=== PATIENT | female | born 1985 | race Caucasian/White ===

== ENCOUNTER 2020-10-28 05:01 | Inpatient (IN) | payer OTHER, SELFPAY ==
[2020-10-28] VITALS (67 sets, daily range): BP systolic 88–156; BP diastolic 38–99; PULSE 64–112; RESP 18; TEMP 36.5–37.3; O2SAT 93–100; BMI 33.0
--- NOTE | 2020-10-28 05:02 | LDADM ---
This patient, Allison Evans, was admitted to Labor/Delivery/Recovery 104 on 10/28/20 at 05:01. Plans for labor, pain management and were discussed with patient. Patient/family oriented to hospital policies and general routines including ID bracelet, bed and alarms, visiting hours, pain management, procedures, bathroom and other care routines, personal items, smoking policy, room service/diet and guest tray routines, security routines, and visiting hours. Patient/Family are encouraged to report perceived risks to care and to ask questions if they do not understand what they are told or what they should do. See OBIX for further documentation.
[2020-10-28 05:46] LABS: Basophils Absolute Auto 0.1 K/mm3 (0.0-0.1); Basophils Percent Auto 0.4 % (0.2-1.2); Eosinophils Absolute Auto 0.2 K/mm3 (0-0.3); Eosinophils Percent Auto 1.3 % (0-4.4); Hematocrit 36.9 % (37.0-47.0); Hemoglobin 12.4 g/dL (12.0-15.0); Immature Granulocyte Absolute 0.11 K/mm3 (0.00-0.031); Immature Granulocyte Percent A 0.8 % (0-0.5); Lymphocytes Percent Auto 22.8 % (18.3-44.2); Mean Corpuscular HGB Conc 33.6 g/dl (32-36); Mean Corpuscular Hemoglobin 28.8 pg (26-34); Mean Corpuscular Volume 85.6 fl (80-100); Mean Platelet Volume 9.9 fl (7.4-10.4); Monocytes Percent Auto 6.8 % (2.6-8.5); Neutrophils Absolute Auto 9.5 K/mm3 (1.3-6.7); Neutrophils Percent Auto 67.9 % (45.5-73.1); Platelet Count Result 383 k/mm3 (150-375); Red Blood Count 4.31 M/mm3 (4.2-5.4); Red Cell Distribution Width 14.2 % (11.5-14.5)
[2020-10-28] MEDS: LACTATED RINGERS 1,000 ML 125 ML IV CONT ×3 (05:49→11:36)
[2020-10-28] MEDS: OXYTOCIN 30 UNITS/NS 500 ML 30 UNITS/500 ML BAG IV CONT (05:49)
--- NOTE | 2020-10-28 07:14 | WPDANESEPP ---
Anes - Eval Pre Procedure Procedure: labor epidural Date/Time: 10/28/20 07:14 Surgeon: whitney Pre Op Diagnosis: Ind Patient Data Age: 34 Gender: F Height: 1.65 m Weight: 90 kg Last Vital Signs Temp 37.3 C 10/28/20 05:30 Pulse 92 10/28/20 07:00 Resp 18 10/28/20 05:30 BP 144/88 H 10/28/20 07:00 Allergies Allergy/AdvReac Type Severity Reaction Status Date / Time fluconazole Allergy Intermediate ITCHY HIVES Verified 07/03/18 20:34 Home Medications Medication Instructions Recorded Confirmed Type PNV cmb#95-ferrous fumarate-FA 1 tablet PO DAILY 10/04/20 10/04/20 History [] ferrous sulfate [Iron (ferrous 325 mg PO DAILY 10/04/20 10/04/20 History sulfate)] Laboratory Tests 10/28/20 10/28/20 10/28/20 05:26 05:26 05:26 WBC 14.0 K/mm3 H K/mm3 (4.5-10.0) RBC 4.31 M/mm3 M/mm3 (4.2-5.4) Hgb 12.4 g/dL g/dL (12.0-15.0) Hct 36.9 % L % (37.0-47.0) MCV 85.6 fl fl (80-100) MCH 28.8 pg pg (26-34) MCHC 33.6 g/dl g/dl (32-36) RDW 14.2 % % (11.5-14.5) Plt Count 383 k/mm3 H k/mm3 (150-375) MPV 9.9 fl fl (7.4-10.4) Immature Gran % (Auto) 0.8 % H % (0-0.5) Neut % (Auto) 67.9 % % (45.5-73.1) Lymph % (Auto) 22.8 % % (18.3-44.2) Carter % (Auto) 6.8 % % (2.6-8.5) Eos % (Auto) 1.3 % % (0-4.4) Baso % (Auto) 0.4 % % (0.2-1.2) Lymph # (Auto) 3.20 K/mm3 K/mm3 (0.9-3.2) Carter # (Auto) 1.0 K/mm3 H K/mm3 (0.1-0.6) Eos # (Auto) 0.2 K/mm3 K/mm3 (0-0.3) Baso # (Auto) 0.1 K/mm3 K/mm3 (0.0-0.1) Abs Immat Gran (auto) 0.11 K/mm3 H K/mm3 (0.00-0.031) Absolute Neuts (auto) 9.5 K/mm3 H K/mm3 (1.3-6.7) Absolute Nucleated RBC 0.0 K/mm3 K/mm3 (0.0-0.012) Nucleated RBC % 0.0 % % (0.0-0.2) RPR Pending HIV 1&2 Ab/P24 Ag 4thGn Blood Type O Positive Antibody Screen Negative 10/28/20 06:27 WBC RBC Hgb Hct MCV MCH MCHC RDW Plt Count MPV Immature Gran % (Auto) Neut % (Auto) Lymph % (Auto) Carter % (Auto) Eos % (Auto) Baso % (Auto) Lymph # (Auto) Carter # (Auto) Eos # (Auto) Baso # (Auto) Abs Immat Gran (auto) Absolute Neuts (auto) Absolute Nucleated RBC Nucleated RBC % RPR HIV 1&2 Ab/P24 Ag 4thGn Pending Blood Type Antibody Screen Patient hx anesthesia problems: none Family hx anesthesia problems: none [facility] Past Medical History Medical History (Updated 10/28/20 @ 07:15 by Enedina Barba CRNA) PIH ( induced hypertension) Family History Family History Father Heart disease Social History Social History Smoking status: Never smoker Substance use: never Gender identity (if verbalized by the patient): Female Spiritual care concerns: No Exam Day of Procedure 10/28/20 07:14
[2020-10-28 07:41] LABS: HIV 1/2 Ab P24 Ag Result Negative (Negative)
[2020-10-28 08:22] LABS: Alanine Aminotransferase 9 U/L (4-35); Albumin Level 3.6 g/dL (3.5-5.1); Alkaline Phosphatase 117 U/L (38-126); Anion Gap 9 mmol/L (8-16); Aspartate Amino Transferase 16 U/L (14-36); Bilirubin,Total 0.2 mg/dL (0.2-1.3); Blood Urea Nitrogen 8 mg/dL (7-17); Calcium 9.3 mg/dL (8.4-10.2); Carbon Dioxide 20 mmol/L (22-30); Chloride 106 mmol/L (98-107); Estimated CRCL calculation 149 ml/min; Estimated Glomerular Filt Rate > 60; Glucose 112 mg/dL (65-105); Potassium 3.5 mmol/L (3.4-5.0); Sodium 135 mmol/L (137-145); Uric Acid 3.8 mg/dL (2.5-7.5)
[2020-10-28 09:27] LABS: Rapid Plasma Reagin Non-Reactive (NonReactive)
--- NOTE | 2020-10-28 12:25 | PM.OBPNLAB ---
Pain Control Date/time seen: 10/28/20 12:25 Pain control: epidural Pelvic Exam Dilation (cm): 5 Effacement (%): 70 station: -2 Amniotic membrane status: Ruptured (clear on this exam) Contractions Monitor mode: External Contraction frequency: 2 Status status: Category ll Comments: 140's/ mod geovanni/ + accels/ variable decels noted - cat 2, reassuring Assessment and Plan Pitocin rate (mU/min): 20 Assessment: induction ongoing Plan: continuous present management
[2020-10-28] MEDS: ONDANSETRON INJ 4 MG/2 ML VIAL IV PUSH (13:02)
--- NOTE | 2020-10-28 15:05 | PM.OBPRVD ---
OB - Delivery Note Procedure Route of delivery: Episiotomy description: None Laceration Description: Perineal - 2nd Degree Delivery repair: chromic Specimen: No Quantitative Blood Loss (ml): 200 Anesthesia type: Epidural Disposition: floor Narrative: Patient prepped and draped in usual manner for this procedure. Maternal expulsive efforts readily delivered vertex. Rest of baby was delivered without difficulty cord clamped and cut and the placenta delivered spontaneously. Uterus was well contracted. Cervix vagina vulva were inspected with second-degree midline laceration noted. This was approximated using 2 0 chromic in a running interlocking manner to approximate vaginal tissue deep tissue and subcuticular layer on the perineal skin. skin was well approximated and rendered hemostatic. Procedure was skin considered terminated at this point. [place] Baby Weeks of gestation at delivery: 39 Infant gender: Female Weight (pounds): 8 Weight (ounces): 0 score one minute: 8 score five minutes: 9
[2020-10-28] MEDS: OXYTOCIN 30 UNITS/NS 500 ML 30 UNITS/500 ML BAG 125 UNITS IV CONT (15:11)
[2020-10-28] MEDS: IBUPROFEN 600 MG TABLET PO ×2 (16:52→23:05)
--- NOTE | 2020-10-28 17:25 | OBPPTRN ---
Patient transferred to post room # 280 via wheelchair accompanied by fob and infant. Support person present. Oriented to unit, room, information board, rooming in, admission packet and security measures. Patient verbalizes understanding.
--- NOTE | 2020-10-28 17:30 | PC.NURSE ---
PT is instructed and educated in mom baby care using one to one discussion and the mom baby care guide book. no barriers to learning were noted and mom is basically the recipient. mom verbalized understanding of such instructions.
[2020-10-28] MEDS: busPIRone HCL 5 MG TABLET PO (21:00)
[2020-10-29 05:00] VITALS: BP 113/73; PULSE 91; RESP 16; TEMP 37.1
[2020-10-29 05:00] LABS: Hematocrit 33.6 % (37.0-47.0); Hemoglobin 10.9 g/dL (12.0-15.0)
[2020-10-29] MEDS: IBUPROFEN 600 MG TABLET PO ×2 (05:00→11:09)
[2020-10-29 08:25] VITALS: BP 127/85; PULSE 90; RESP 16; TEMP 37.1; O2SAT 99
[2020-10-29] MEDS: busPIRone HCL 5 MG TABLET PO (08:39)
[2020-10-29 13:00] VITALS: BP 107/69; PULSE 70; RESP 16; TEMP 37; O2SAT 100
--- NOTE | 2020-11-01 10:58 | PM.OBDSVD ---
DS: Admitting Diagnosis Admitting Diagnosis Admitting Diagnosis: OB - DS: Summary OB Procedures : None OB Procedures Intrapartum: Spontaneous Vag Delivery OB Procedures: : None Time Spent with Patient Time attestation: Total time spent providing and/or coordinating discharge services: Discharge Plan Discharge Discharging Clinician: Ana Huntley Patient Disposition: Home, Self-Care Activity: as tolerated Diet: as tolerated Discharge Instructions: Education: Mom and Baby Guide Given to: Mother Follow-Up: Call your delivering provider's office for an appointment to be seen in: 4 Weeks Mom and baby should come to the [facility] for the follow-up appointment. Appointment Date/Time: November 01, 2020 at 11:00 am What to expect at your follow-up visit: Physical Assessment Call [phone] if you are unable to keep your appointment time. BREAST CARE: * Wear a snug supportive bra. * For engorgement discomfort: Bottle Feeding: * May apply ice packs PERINEAL CARE: * Until bleeding stops, use your rodolfo bottle after urinating * Change your pad frequently throughout the day * You may take sitz baths several times a day (fill your bathtub with warm water and soak for 20 minutes.) Do NOT bathe in the water * No tub baths until seen by your physician - You may shower ACTIVITY: * Rest as much as possible. * Do not exercise or lift anything heavier than your baby (such as laundry or other children.) * Avoid stairs or driving as much as possible. * Do not put anything into the vagina. No douching, tampons, or sexual activity until seen by physician. NOTIFY PHYSICIAN IF YOU HAVE ANY QUESTIONS OR IF ANY OF THE FOLLOWING SYMPTOMS OCCUR: * If your stitches become red, swollen, or more painful than what you have experienced in the hospital. * If your vaginal bleeding becomes foul smelling. * If your vaginal bleeding becomes more heavy than a period or if your bleeding changes from pink to bright red. However, you may pass an occasional walnut-sized clot once or twice for the first week . * If you experience a sharp, shooting pain in you calves. * If you discover a hard, reddened area on your breast or if you experience flu-like symptoms. DIET: * Eat regular, well-balanced meals. * Drink plenty of fluids daily. Patient Instructions: Antibiotic Form Stand Alone Forms: General Discharge Information Follow-up/Referrals: Juanjo Thompson MD [Physician] - 4 Weeks Discharge Medications: Discontinued ferrous sulfate [Iron (ferrous sulfate)] 325 mg (65 mg iron) Tablet 325 mg PO DAILY RF: 0 PNV cmb#95-ferrous fumarate-FA [] 28 mg iron- 800 mcg Tablet 1 tablet PO DAILY RF: 0 Date of admission: 10/28/20 05:01 Primary Care Provider: Alissa,Venita Admitting Provider: Juanjo Thompson Attending physician on admission: Juanjo Thompson Condition: Stable
[2020-11-01 11:13] VITALS: BP 152/102; PULSE 98; RESP 20; TEMP 36.8; O2SAT 100
== END 2020-10-29 16:21 | disposition home or self-care (01) | DRG 807 ==
LOC: ANHOB2 10-29 14:00 → ANHLDR 11-01 13:38 → ANHOB2 11-01 13:38
PROVIDERS: Admitting Provider Obstetrics & Gynecology; PCP Physician Assistant; Visit Provider Obstetrics & Gynecology
DX: O13.4 Gestational [pregnancy-induced] hypertension without significant proteinuria, complicating childbirth (principal); Z37.0 Single live birth; Z3A.39 39 weeks gestation of pregnancy; O70.1 Second degree perineal laceration during delivery; O36.8330 Maternal care for abnormalities of the fetal heart rate or rhythm, third trimester, not applicable or unspecified
CPT/HCPCS: 36415; 80053; 84550; 85014; 85018; 85025; 86592; 86703; 86850; 86900; 86901; A9270; G0432; J1200; J2405; J2590; J7120

== ENCOUNTER 2024-02-18 12:26 | Outpatient (CLI) | payer OTHER, SELFPAY ==
--- NOTE | ~2024-02-18 | XR_ITS ---
3 VIEWS LUMBAR SPINE Ordering provider: America Maxwell, CAMILO History: . Low back pain . Comparison: None. FINDINGS: VERTEBRAL BODIES:Levoscoliosis. No visible fracture or subluxation. DISK SPACES: Normal. SOFT TISSUES: Calcifications in the right upper quadrant may be in the liver or gallbladder. IMPRESSION: No acute osseous abnormality lumbar spine. Levoscoliosis. Reviewed, dictated and finalized at location A.
== END 2024-02-18 12:27 ==
PROVIDERS: PCP Physician Assistant; Visit Provider Physician Assistant
DX: M54.50 Low back pain, unspecified (principal)
CPT/HCPCS: 72100